=== PATIENT | male | born 1935 | race Caucasian/White ===

== ENCOUNTER 2018-04-17 10:14 | Day surgery (SDC) | payer MEDICARE, BC ==
[2018-04-16 10:30] VITALS: BMI 27.1
[2018-04-17] MEDS ORDERED: Iothalamate Meglumine 60% 50 ML VIAL FS ONE (10:43)
[2018-04-17 11:38] LABS: Anion Gap 10 mmol/L (10-20); BUN (Urea Nitrogen) 9 mg/dL (8.4-25.7); Calc. Creatinine Clearance 84 mL/min (70-130); Calcium 9.2 mg/dL (7.8-10.44); Carbon Dioxide 26 mmol/L (23-31); Chloride 108 mmol/L (98-107); Estimated GFR-MDRD 86; Glucose 103 mg/dL (83-110); Potassium 4.5 mmol/L (3.5-5.1); Sodium 139 mmol/L (136-145)
[2018-04-17] MEDS ORDERED: Indomethacin 50 MG SUPP ONE (11:47)
--- NOTE | 2018-04-17 13:06 | OP ---
DATE OF PROCEDURE: 04/17/2018 PREOPERATIVE DIAGNOSIS: Choledocholithiasis by intraoperative cholangiogram. PROCEDURE: After informed consent was obtained, the patient was placed in the left lateral decubitus position. Anesthesia was administered per the Anesthesia Department. Side-viewing endoscope was in serted into esophagus under direct visualization with ease and passed to the second portion of the du odenum with ease. No mucosal abnormalities were noted. Periampullary diverticulum was noted. A tap er tipped cannula was inserted in common duct. Cholangiogram revealed some filling defects. A sphin cterotomy was performed and multiple ducts were removed sweeping with a 12 mm balloon. The stones we re black in color. Occlusion cholangiogram showed no filling defects. ASSESSMENT: 1. Choledocholithiasis. 2. Status post sphincterotomy and stone extraction. RECOMMENDATIONS: Repeat LFTs.
== END 2018-04-17 14:22 | disposition home or self-care (01) ==
LOC: SDC 10:14
PROVIDERS: ATTEND Internal Medicine Gastroenterology
PROC: 0FC98ZZ Extirpation of Matter from Common Bile Duct, Via Natural or Artificial Opening Endoscopic (ICD-10-PCS; principal; 2018-04-17)
DX: K80.50 Calculus of bile duct without cholangitis or cholecystitis without obstruction (principal); M19.90 Unspecified osteoarthritis, unspecified site; Z79.01 Long term (current) use of anticoagulants; Z79.899 Other long term (current) drug therapy; Z88.5 Allergy status to narcotic agent
CPT/HCPCS: 36415; 74330; 80048; 93005; 93010; Q9961